=== PATIENT | male | born 1985 | race Caucasian/White ===

== ENCOUNTER 2024-07-24 22:01 | Emergency (ER) | payer SELFPAY ==
[~2024-07-24] VITALS: Ht 188 cm; Wt 118.2 kg
[2024-07-24 22:05] VITALS: TEMP 97.9
[2024-07-24] MEDS ORDERED: Ketorolac 15 MG/ML VIAL IV ONE (22:30)
[2024-07-24 22:56] VITALS: BP 179/101; PULSE 97
== END 2024-07-24 22:56 | disposition home or self-care (01) ==
LOC: COL.ER 22:01
DX: S43.005A Unspecified dislocation of left shoulder joint, initial encounter (principal); X50.1XXA Overexertion from prolonged static or awkward postures, initial encounter; Y93.39 Activity, other involving climbing, rappelling and jumping off
CPT/HCPCS: J1885